=== PATIENT | female | born 2000 | race African-American/Black ===

== ENCOUNTER 2024-10-24 23:24 | Emergency (ER) | payer OTHER, MEDICAID ==
[~2024-10-24] VITALS: Ht 160 cm; Wt 123.0 kg
[2024-10-24] MEDS: NEOMYCIN-BACITRACIN-POLYM UNITDOSE PKG TOP OINT TOP ONE (23:58)
[2024-10-25] MEDS: TETANUS-DIPTH-ACEL PERTUSSIS 0.5ML SYR Tdap IM ONE (01:17)
[2024-10-25] MEDS: HYDROcodone-ACET 10/325MG TAB PO ONE (01:18)
[2024-10-25 01:25] VITALS: BP 136/77; PULSE 100; RESP 18; TEMP 98.2; O2SAT 99
[2024-10-25] MEDS: KETOROLAC TROMETH 60MG/2ML VIAL IM ONE (01:25)
[2024-10-25] MEDS: NEOMYCIN-BACITRACIN-POLYM UNITDOSE PKG TOP OINT TOP ONE ×2 (01:34→01:45)
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
[2024-10-25] MEDS ORDERED: IBUP-1455 PO (02:27)
[2024-10-25] MEDS ORDERED: HYDR-4902 PO (02:27)
[2024-10-25] MEDS ORDERED: CEPH250C PO (02:27)
[2024-10-25] MEDS ORDERED: BACIOIN15 TOP (02:27)
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
== END 2024-10-25 02:49 | disposition home or self-care (01) ==
LOC: ER 23:24
DX: T14.8XXA Other injury of unspecified body region, initial encounter (principal); E66.01 Morbid (severe) obesity due to excess calories; R42 Dizziness and giddiness; Z04.1 Encounter for examination and observation following transport accident; V29.99XA Rider (driver) (passenger) of other motorcycle injured in unspecified traffic accident, initial encounter; Y93.89 Activity, other specified; Y92.410 Unspecified street and highway as the place of occurrence of the external cause; Y99.8 Other external cause status
CPT/HCPCS: 70450; 71250; 72125; 74176; 90471; 90715; 96372; 99285; J1885